=== PATIENT | male | born 1955 | race Caucasian/White ===

== ENCOUNTER 2023-01-03 07:53 | Observation (INO) ==
--- NOTE | 2022-12-12 15:28 | PAT Medication Instructions ---
Medication Instructions Date of Service December 12, 2022 Home Medications allopurinol 300 mg tablet 300 mg PO QAM hydrochlorothiazide 25 mg tablet 25 mg PO QAM lisinopril 10 mg tablet 10 mg PO QAM metoprolol tartrate 100 mg tablet 100 mg PO QAM DO NOT take the morning of surgery hydrochlorothiazide 25 mg tablet 25 mg PO QAM lisinopril 10 mg tablet 10 mg PO QAM Take morning of surgery With a small sip of water, OTHERWISE NOTHING TO EAT OR DRINK AFTER MIDNIGHT: allopurinol 300 mg tablet 300 mg PO QAM metoprolol tartrate 100 mg tablet 100 mg PO QAM Other Notes If you have any questions please call us at [phone] or [phone] or [phone] or [phone]
--- NOTE | 2022-12-15 11:23 | History & Physical Report ---
Date of Service December 15, 2022 date of surgery: 01/03/23 Procedure: Right Total Knee Arthroplasty Surgeon: Erik Schultz Assessment & Plan (1) Arthritis of right knee: Plan: Risk and benefits of the procedure discussed in detail, he would like to proceed with right total knee replacement. He does live alone and would recommend overnight stay at the hospital. He states his kids live nearby and will be staying with him after surgery. Will place on aspirin 81 mg twice a day for 1 month postop. Follow-up in the office 2 weeks after surgery sooner if he is having any issues otherwise has no other questions or concerns. Would recommend home health physical therapy at the time of discharge The risks and benefits have been discussed including, but not limited to, risk of infection, nerve injury, stiffness, loss of motion, failure to improve, etc. Reasonable outcomes and options of treatment were discussed. An explanation of appropriate alternatives to the procedure that may be advantageous were discussed and their risks and benefits, as well as the risks and benefits of not proceeding with treatment. I offered to answer any additional inquiries concerning the treatment involved. All the patient's questions were answered. The patient is agreeable, understanding of the treatment plan and alternatives, and wishes to proceed with the treatment plan. History of Present Illness Chief Complaint: Right knee pain Primary Care Provider: NO PCP Patient presents for preop evaluation prior to his right total knee replacement. He states that he been having pain in his knee for several years now which is gradually worsened and is now affecting his daily activities including walking standing and using stairs. He has complaints of pain, decreased range of motion and intermittent swelling. At this point time is failed conservative measures like proceed with a right total knee replacement Allergies Allergy/AdvReac Type Severity Reaction Status Date / Time No Known Allergies Allergy Verified 12/12/22 11:17 Home Medications Medication Instructions Recorded Confirmed Type allopurinol 300 mg tablet 300 mg PO QAM 12/12/22 12/12/22 History hydrochlorothiazide 25 mg tablet 25 mg PO QAM 12/12/22 12/12/22 History lisinopril 10 mg tablet 10 mg PO QAM 12/12/22 12/12/22 History metoprolol tartrate 100 mg tablet 100 mg PO QAM 12/12/22 12/12/22 History Past Med/Surg History Medical History Gout HTN (hypertension) Surgical History Hx of cholecystectomy Hx of colonoscopy Hx of hemorrhoidectomy Family History Other No family history of adverse response to anesthesia Social History Smoking Status: Never smoker Second Hand Exposure: No; Do You Dip or Chew Tobacco: Yes (ADVISED); Tobacco Cessation Education Requested by Patient: No Hx Alcohol Use: Yes Alcohol type: beer Hx Substance Use: No Preferred Language: Korean Communication Ability: Effective Ed Teacher Required: No Beliefs That Will Affect Care: None Current Living Situation: Alone Other Information That Helps Us Care for You: No Feels Safe at Home: Yes Safety Concerns: Feels Safe At This Time Assistive Devices: Glasses Review of Systems Review of Systems: All systems reviewed & are unremarkable except as noted in HPI & below Constitutional: no fever, no chills and no sweats Respiratory: no cough and no dyspnea Cardiovascular: no chest pain, no dyspnea and no orthopnea Gastrointestinal: no abdominal pain, no nausea and no vomiting Musculoskeletal: as per Subjective / HPI Physical Exam Physical Exam: ht: 5ft 7in WT: 84.37kg Constitutional: WD/WN, vitals as above no acute distress Respiratory: normal respiratory effort, lungs clear to auscultation no res piratory distress, no labored breathing and does not use accessory muscles Cardiovascular: RRR, no murmur, no edema Gastrointestinal (Abdomen): normal bowel sounds, soft, nontender, no hepatosplenomegaly Musculoskeletal: Knee: + knee abnormal to inspection (RIGHT KNEE: ), + effusion (+1 effusion), + limited ROM of knee (ROM 0/3/110), + knee ROM with crepitation, + joint line tenderness (medial joint line) and + Sonia's sign positive; no deformity, no skin erythema, no ecchymosis, no valgus laxity, no varus laxity, anterior drawer test negative, Roberto's sign negative and pivot shift test negative Results & Data Results & Data ([facility]) Diagnostic Findings Right Knee X-ray: Right knee series showing advanced degenerative changes to the right knee, narrowing of the medial compartment and patello-femoral joint with patellar spurring noted, findings showing joint space narrowing of the medial compartment and patello-femoral joint, osteophyte formation and subchondral sclerosis noted. overall varus alignment. no acute bony pathology noted.
--- NOTE | 2022-12-15 12:59 | Anesthesiology Consultation ---
Date of Service December 15, 2022 Assessment & Plan (1) Encounter for pre-operative examination: - COVID screening: Per assessment on 12/15: No known COVID-19 positive contacts or current COVID-19 related symptoms. Travel screen negative. Patient vaccinated. At surgeon discretion if preop Covid testing being done. - Outpatient joint assessment: Pt currently scheduled for inpatient pathway. If surgeon requests review for outpatient joint pathway, patient is an acceptable candidate for outpatient joint program from anesthesia standpoint pending surgeon's office assessment that patient is motivated, has good support and completes Same Day Joint Program preop requirements. Chart Review Chart Review: Acceptable Risk for Surgery and Patient seen in Pre Admission Testing Teaching & Discussion Pre-Anesthesia Teaching/Discussion Notes: Instructed NPO after midnight before surgery,except medications with 15 cc of water. Medication instructions provided according to the PAT guidelines. History Surgery Operation Date: 01/03/23 08:25 Proposed Procedures p Right Total Knee Arthroplasty - Erik Schultz DO Height/Weight Height: 5 ft 7 in Weight: 87 kg Allergies Allergy/AdvReac Type Severity Reaction Status Date / Time No Known Allergies Allergy Verified 12/12/22 11:17 Medications Home Medications Medication Instructions Recorded Confirmed Last Taken allopurinol 300 mg tablet 300 mg PO QAM 12/12/22 12/12/22 Unknown hydrochlorothiazide 25 mg tablet 25 mg PO QAM 12/12/22 12/12/22 Unknown lisinopril 10 mg tablet 10 mg PO QAM 12/12/22 12/12/22 Unknown metoprolol tartrate 100 mg tablet 100 mg PO QAM 12/12/22 12/12/22 Unknown Past Medical History Medical History Gout HTN (hypertension) Exercise / Class Metabolic Activity II 4-5 Yardwork/Stairs/Walk up hill Past Family History Family History Other No family history of adverse response to anesthesia Past Surgical History Surgical History Hx of cholecystectomy Hx of colonoscopy Hx of hemorrhoidectomy Past Anesthesia History No Family Hx of Anesthesia Complications and Other (Slow to wake with cholecystectomy) History of PONV No Hx of PONV and No Hx of Motion Sickness Social History Smoking Status: Never smoker tobacco type: smokeless tobacco Do You Dip or Chew Tobacco: Yes (Advised none DOS) Hx Alcohol Use: Yes Alcohol type: beer alcohol intake frequency: a few times a week Hx Substance Use: No substance use type: does not use Review of Systems Patient denies chest pain, shortness of breath, dyspnea on exertion, fever, chills, cough, wheezing, palpitations. Physical Exam Vital Signs VITALS BP 155/88 P 54 TEMP 97.6 SP02 95%RA RESP 16 PHYSICAL Full cervical extension range of motion. Full TMJ range of motion. TMD 2.5 finger breaths Mallampati Score 2 Dentition: several chipped including upper front/sides Lungs: clear throughout to auscultation Cardiac: regular rate and rhythm, no murmurs noted Spine: normal Carotid arteries: negative bruit Extremities: no edema Lab Results Anesthesia Preop Results Results Anesthesia Widget: WBC 6.74 K/ul (4.8-10.8) 12/15/22 Hgb 16.8 g/dl (14.0-18.0) 12/15/22 Hct 48.8 % (42.0-52.0) 12/15/22 Plt 164 K/uL (130-400) 12/15/22 Na 140 mmol/L (136-145) 12/15/22 K 3.7 mmol/L (3.5-5.1) 12/15/22 Cl 100 mmol/L (98-107) 12/15/22 CO2 34 mmol/L (21-32) H 12/15/22 BUN 14 mg/dl (6-23) 12/15/22 Creat 1.12 mg/dl (0.6-1.4) 12/15/22 Glucose Level 91 mg/dl (70-99(Fasting)) 12/15/22 PT 10.8 Seconds (9.0-12.0) 12/15/22 PTT 26.9 Seconds (21.0-31.0) 12/15/22 INR 1.0 (0.9-1.1) 12/15/22 HA1c 5.6 % (4.5-5.6) 12/15/22 Urine Color Yellow 12/15/22 Urine Appearance Clear (Clear) 12/15/22 Urine pH 5.5 (4.5-7.5) 12/15/22 Urine Specific [place] 1.013 (1.000-1.030) 12/15/22 Urine Protein Negative (Negative) 12/15/22 Urine Glucose (UA) Negative (Negative) 12/15/22 Urine Ketones Negative (Negative) 12/15/22 Urine Blood Negative (Negative) 12/15/22 Urine Nitrite Negative (Negative) 12/15/22 Urine Bilirubin Negative (Negative) 12/15/22 Urine Urobilinogen Negative (Negative) 12/15/22 Urine Leukocyte Esterase Negative (Negative) 12/15/22 Blood Type O Positive 12/15/22 Antibody Screen NEGATIVE 12/15/22 Testing Electrocardiogram Date: 12/15/22 Findings: + SB @ (57) Chest X-Ray Date: 12/15/22 FINDINGS: The lungs are clear. Cardiac silhouette is normal in size. No pleural effusions. No pneumothorax. Prior cholecystectomy. IMPRESSION: No acute process. COVID-19 Risk Screen Screening Information COVID-19 Screen Date: 12/15/22 Exposure 21 Days Family/Household +COVID Last 21 Days: No Exposure 10 Days Any COVID Exposure Last 10 Days: No Symptoms Last 10 Days Experienced COVID Sx Last 10 Days: No + COVID 0-90 Days COVID + in Last 0-90 Days: No
[~2023-01-03 07:53] MED LIST: ACETAMINOPHEN 500 MG TAB PO SCH; CeleBREX 200 MG CAP PO SCH; FAMOTIDINE 20 MG TAB PO SCH; GABAPENTIN 300 MG CAP PO SCH; LR 500ML BOLUS, THEN 15ML/HR IV SCH; METOCLOPRAMIDE HCL 10 MG TABLET PO SCH; ROPIVACAINE 0.5% 5 MG/ML 30 ML VIAL ONE; ROPIVACAINE 0.5% HCL/PF 150 MG, BUPIVACAINE 0.75% MPF 20 ML, EPINEPHrine 30MG/30ML (OR ... INSTIL SCH; TRANEXAMIC ACID 1,000 MG **IV Intra-op IV SCH; TRANEXAMIC ACID 1,000 MG **IV Pre-op IV SCH; ceFAZolin 2000MG 2,000 MG/15 ML SYR IV SCH; dexAMETHasone 4 MG TAB PO SCH
[2023-01-03] MEDS ORDERED: MIDAZOLAM HCL 1 MG/ML 2ML VIAL ONE (09:26)
[2023-01-03] MEDS ORDERED: fentaNYL citrate 100 MCG/2 ML VIAL ONE (09:26)
[2023-01-03] MEDS ORDERED: PROPOFOL IV EMULSION 10 MG/ML 20 ML VIAL IV ONE (09:26)
[2023-01-03] MEDS ORDERED: LIDOCAINE 2% MPF LOCAL 5 ML VIAL INFIL ONE (09:26)
--- NOTE | 2023-01-03 10:01 | History & Physical Bridge Note ---
Date of Service January 03, 2023 History & Physical Bridge Note I have examined the patient, reviewed the History & Physical and in the interval since the performance of the History & Physical I have noted the following changes of clinical significance: no changes noted
[2023-01-03] MEDS ORDERED: ORTHO JOINT ANESTHETIC ONE (10:39)
[2023-01-03] MEDS ORDERED: ONDANSETRON INJ 2 MG/ML 2 ML VIAL IV PRN ×2 (11:05→14:39)
[2023-01-03] MEDS ORDERED: ePHEDrine sulfate 50 MG/ML AMP IV PRN (11:05)
[2023-01-03] MEDS ORDERED: fentaNYL citrate 100 MCG/2 ML VIAL IV PRN (11:05)
[2023-01-03] MEDS ORDERED: ATROPINE SULFATE 0.1 MG/ML 10ML SYR IV PRN (11:05)
[2023-01-03] MEDS ORDERED: KETOROLAC 30 MG/ML VIAL IV PRN (11:05)
[2023-01-03] MEDS ORDERED: PHENYLEPHRINE HCL 10 MG/ML VIAL ONE (11:46)
[2023-01-03] MEDS ORDERED: GLYCOPYRROLATE 0.2 MG/ML VIAL ONE (11:46)
--- NOTE | 2023-01-03 12:33 | Operative Report ---
Post Operative Report Pre & Post Diagnosis Operation Date: 01/03/23 10:45 Pre-Op Diagnosis: Right knee osteoarthritis. Post-Op Diagnosis: Right knee osteoarthritis. I identified the patient and participated in the time-out.: Yes Procedure Operation Date: 01/03/23 10:45 Actual Procedures p Right total knee arthroplasty(Right) utilizing [employer] carmine patient matched size 9 femur narrow tibia F poly 13 patella 35- Erik Schultz DO Surgeon Erik Schultz DO Building Supervisor CARLIE Watkins Estimated Blood Loss 5 Findings Consistent with Post-Op Diagnosis Patient presents with severe end-stage DJD 7 degree flexion contracture varus alignment eburnated [id number] marginal osteophyte subchondral sclerosis with a large effusion Specimens Bone and cartilage Drains Medium bore Hemovac Anesthesia Type MAC Spinal Regional Complications none Disposition Accompanied Patient To Recovery: No Disposition: Recovery Room Indications Patient patient presents with severe end-stage DJD failed attempted conservative management clinic physical therapy anti-inflammatories relative rest activity modification corticosteroid injection the above intraoperative findings were noted Description of Procedure After proper prepping and draping of the Right lower extremity anterior midline incision was made over the region of the extensor extensor mechanism after meticulous hemostasis was obtained and maintained in subcutaneous tissues a medial parapatellar incision was made The patella was subluxed lateralward the medial lateral gutter were cleaned from any hypertrophic synovitis and scar tissue of the distal femoral block was placed and the distal femoral osteotomy cut was made subsequently the chamfers anterior and posterior osteotomy cuts were made utilizing the 4-in-1 block the tibia was subsequently subluxed anteriorward medial and ateral meniscal remnants were excised in their entirety remnants of the anterior and posterior cruciate ligaments were excised in their entirety excellent exposure of the proximal tibia was obtained the tibial osteotomy guide was placed on the proximal tibial osteotomy cut was made once again the knee was irrigated with copious amounts of sterile saline solution the patella was subsequently everted lateralward thickened scar tissue around the patella was removed the patella was subsequently cut utilizing a freehand technique and was drilled prepared for final preparation and placement of patella socially flexion-extension gaps were checked and the equal and symmetric trials were placed to the appropriate femoral and tibial trials with poly-spacer being placed for equal flexion and extension gaps and full range of motion including extension to 0 and flexion to 140 the trial components after having been taken to recovery range of motion was subsequently removed meticulous hemostasis was obtained and maintained subsequently a knee block injection of joint cocktail including ropivacaine 0.5% 150 mg. Bupivacaine 0.5% epinephrine 1-200,030 mL's toradol 30 mg dexamethasone 4 mg ketamine 10 mg clonidine 100 micrograms normal saline solution 30 mg was infiltrated into the soft tissues of the posterior knee medial lateral gutters and periosteal synovium special attention was paid to protect neurovascular structures at all times subsequently trial components having been removed the knee was irrigated with sterile saline solution. debris was removed the proximal tibia was subsequently prepared and was made ready for the placement of the tibial component tibial component was also cemented and tamped into position the femoral component was subsequently placed and cemented in the position the patellar component was subsequently cemented in position because hemostasis once again obtained and maintained wound having been thoroughly irrigated with debridement and debridement lavage was performed as well as a medial parapatellar incision closed with #1 Vicryl in interrupted fashion subcutaneous was closed with #2 Vicryl skin was closed with skin clips. PA-C was necessary for prepping and drapping as well as wound closure of deep fascia Sub cutaneous tissue and skin and was necessary for the case. A sterile compressive dressing was placed patient was taken to recovery in stable condition of report dictated by Antoine I attest to the content of the Intraoperative Record and any orders documented therein. Any exceptions are noted below.Due to the complex nature of the procedure, the entire surgery was performed with the operational assistance of CARLIE Watkins. The career services assistant, under direct supervision, was involved in the actual performance of all aspects of the surgical procedure including hemostasis, tissue retraction and incision, instrument management, patient positioning, and wound closure. I attest to the content of the Intraoperative Record and any orders documented therein. Any exceptions are noted below.
--- NOTE | 2023-01-03 13:35 | XRay Report ---
XR knee RT 1 or 2V routine CLINICAL HISTORY: Surgical Post Op TECHNIQUE: 2 views of the right knee were obtained. Comparison: None available at the time of this dictation. FINDINGS: Patient is status post total knee arthroplasty with expected postsurgical changes including soft tiss ue swelling and subcutaneous emphysema. No periarticular lucency or hardware fracture is seen. IMPRESSION: No evidence of acute osseous injury. ACT 112: Negative or not required by law. Electronically signed by: Manny Neri M.D. 01/03/2023 1:34 PM
--- NOTE | 2023-01-03 14:16 | Anesthesiology Progress Note ---
Date of Service January 03, 2023 Anesthesia Post Procedure Vital Signs Vital Signs: Temp Pulse Pulse Resp BP Pulse Ox O2 Del Method 01/03/23 14:05 36.0 C L 48 L 17 113/77 93 Room Air 01/03/23 13:55 68 16 124/75 95 Room Air 01/03/23 13:45 64 14 110/72 94 Room Air 01/03/23 13:35 63 26 H 115/77 94 Room Air 01/03/23 13:25 74 22 107/80 97 Room Air 01/03/23 13:15 56 L 19 102/68 96 Oxymask 01/03/23 13:06 36.2 C L 58 L 14 97/62 L 98 Oxymask 01/03/23 08:52 Room Air 01/03/23 08:42 36.6 C 59 L 20 138/87 98 Room Air O2 Flow Rate 01/03/23 14:05 01/03/23 13:55 01/03/23 13:45 01/03/23 13:35 01/03/23 13:25 01/03/23 13:15 5 01/03/23 13:06 5 01/03/23 08:52 01/03/23 08:42 Transfer of Care Handoff Completed per policy Notes Mental Status: alert / awake / arousable Patient Amnestic to Procedure: Yes Nausea / Vomiting: adequately controlled Pain: adequately controlled Airway Patency, RR, SpO2: stable & adequate BP & HR: stable & adequate Hydration State: stable & adequate Neuraxial Anesthesia: was administered and sensory block is resolving Anesthetic Complications: no major complications apparent
[2023-01-03] MEDS ORDERED: METOCLOPRAMIDE HCL INJ 5 MG/ML 2 ML VIAL IV PRN (14:39)
[2023-01-03] MEDS ORDERED: MAGNESIUM HYDROXIDE SUSP 30 ML UDC PO PRN (14:39)
[2023-01-03] MEDS ORDERED: diphenhydrAMINE Capsule 25 MG CAP PO PRN (14:39)
[2023-01-03] MEDS ORDERED: NALOXONE HCL 0.4 MG/1 ML VIAL/CARP IV PRN (14:39)
[2023-01-03] MEDS ORDERED: bisacodyL 10 MG SUPP PR PRN (14:39)
[2023-01-03] MEDS ORDERED: HYDROmorphone INJ 1 MG/ML SYRINGE IV PRN (14:39)
[2023-01-03] MEDS ORDERED: oxyCODONE HCL IR 5 MG TAB (IMMEDIATE RELEASE) PO PRN (14:39)
[2023-01-03] MEDS: SODIUM CHLORIDE 0.9% 1000ML 1,000 ML IV SCH (15:12)
[2023-01-03] MEDS: ACETAMINOPHEN 500 MG TAB PO SCH ×2 (15:12→21:48)
[2023-01-03] MEDS: KETOROLAC TROMETHAMINE 15 MG/ML VIAL IV SCH ×2 (15:12→21:49)
[2023-01-03] MEDS: ceFAZolin 2000MG 2,000 MG/15 ML SYR IV SCH (18:22)
[2023-01-03] MEDS ORDERED: CeleBREX 200 MG CAP PO SCH (21:00)
[2023-01-03] MEDS ORDERED: SENNA 8.6 MG TAB PO SCH (21:00)
[2023-01-03] MEDS: ASPIRIN 81 MG ECTAB PO SCH (21:47)
[2023-01-03] MEDS: DOCUSATE SODIUM 100 MG CAP PO SCH (21:47)
[2023-01-04] MEDS: SODIUM CHLORIDE 0.9% 1000ML 1,000 ML IV SCH (00:53)
[2023-01-04] MEDS: ceFAZolin 2000MG 2,000 MG/15 ML SYR IV SCH (02:58)
[2023-01-04] MEDS: KETOROLAC TROMETHAMINE 15 MG/ML VIAL IV SCH ×2 (02:58→08:42)
[2023-01-04] MEDS: ACETAMINOPHEN 500 MG TAB PO SCH (06:19)
--- NOTE | 2023-01-04 06:44 | Orthopedic Progress Note ---
Date of Service January 04, 2023 Assessment & Plan (1) History of total right knee replacement: Plan: POD #1 s/p Right TKA pt/ot dvt proph with AARTI/SCD/ASA plan for d/c home with HHPT, d/c after PT today Admission and Anticipated Discharge Date Admission Date: January 03, 2023 Subjective POD #1 s/p Right TKA Review of Systems Constitutional: no fever, no chills and no sweats Respiratory: no cough and no dyspnea Cardiovascular: no chest pain and no dyspnea Gastrointestinal: no abdominal pain, no nausea and no vomiting Physical Exam Physical Exam: Vital Signs Temp 36.5 C 01/04/23 02:59 Pulse 70 01/04/23 02:59 Resp 20 01/04/23 02:59 BP 126/74 01/04/23 02:59 Pulse Ox 95 01/04/23 02:59 O2 Del Method Room Air 01/04/23 02:59 O2 Flow Rate 5 01/03/23 13:15 Intake & Output 01/03/23 01/03/23 01/04/23 06:59 18:59 06:59 Intake Total 1800 / 3311.666 1511.666 / 3311.66 6 Output Total 140 / 550 410 / 550 Balance 1660 / 2761.666 1101.666 / 2761.66 6 Weight 85.2 kg Intake: IV 200 / 6467.845 6013.666 / 1711.66 6 Lactated Ringe r's 1,000 ml @ 15 0 / 0 mls/hr IV .Q24 H MARTHA Rx#: [id number] Sodium Chlorid e 0.9% 1000ML 1, 1511.666 / 1511.66 6 000 ml @ 100 m ls/hr IV .Q10H MARTHA Rx#:[id number] Tranexamic Aci d / 0.7% NaCl 1, 200 / 200 000 mg In 100 ml @ 600 mls/hr IV TODAY@0600 MARTHA Rx#:[id number] IV Perioperative 1600 / 1600 Output: Urine 350 / 350 Estimated Blood Loss 5 / 5 Drain Output 135 / 195 60 / 195 Right Knee Hem ovac 135 / 195 60 / 195 Other: Weight Measureme nt Method Standing Scale Musculoskeletal: Right Leg: NVDI, calf SNT, negative vikas sign. DP palpable, able to wiggle toes/ankle movement without difficulty. dressing clean dry and intact. Results & Data ([facility]) Vital Signs (Past 12 Hours) Vital Signs Temp Pulse Resp BP Pulse Ox O2 Del Method 01/04/23 02:59 36.5 C 70 20 126/74 95 Room Air 01/03/23 23:16 36.5 C 86 15 131/78 95 Room Air 01/03/23 19:24 36.5 C 81 16 138/82 94 Room Air Laboratory Results Laboratory Results SARS-CoV-2, RNA, NAAT NEGATIVE (NEGATIVE) 01/03/23 Unknown Impressions Knee X-Ray 01/03/23 13:16 XR knee RT 1 or 2V routine CLINICAL HISTORY: Surgical Post Op TECHNIQUE: 2 views of the right knee were obtained. Comparison: None available at the time of this dictation. FINDINGS: Patient is status post total knee arthroplasty with expected postsurgical changes including soft tissue swelling and subcutaneous emphysema. No periarticular lucency or hardware fracture is seen. IMPRESSION: No evidence of acute osseous injury. ACT 112: Negative or not required by law. Electronically signed by: Manny Neri M.D. 01/03/2023 1:34 PM
--- NOTE | 2023-01-04 07:36 | Discharge Summary ---
Date of Service date of discharge: January 04, 2023 date of admission: 01/03/23 Admission HPI Per Admitting Provider Patient presents for preop evaluation prior to his right total knee replacement. He states that he been having pain in his knee for several years now which is gradually worsened and is now affecting his daily activities including walking standing and using stairs. He has complaints of pain, decreased range of motion and intermittent swelling. At this point time is failed conservative measures like proceed with a right total knee replacement Principal Diagnosis right knee replacement Discharge Exam Vital Signs Temp 36.4 C L 01/04/23 07:15 Pulse 71 01/04/23 07:15 Resp 16 01/04/23 07:15 BP 147/80 H 01/04/23 07:15 Pulse Ox 95 01/04/23 07:15 O2 Del Method Room Air 01/04/23 07:15 O2 Flow Rate 5 01/03/23 13:15 Intake & Output 01/03/23 01/04/23 01/04/23 18:59 06:59 18:59 Intake Total 1800 / 3311.666 1511.666 / 3311.666 Output Total 140 / 550 410 / 550 Balance 1660 / 2761.666 1101.666 / 2761.666 Weight 85.2 kg Intake: IV 200 / 1892.550 2876.666 / 1711.666 Lactated Ringer's 1,000 ml @ 15 0 / 0 mls/hr IV .Q24H MARTHA Rx#: [id number] Sodium Chloride 0.9% 1000ML 1, 1511.666 / 1511.666 000 ml @ 100 mls/hr IV .Q10H MARTHA Rx#:[id number] Tranexamic Acid / 0.7% NaCl 1, 200 / 200 000 mg In 100 ml @ 600 mls/hr IV TODAY@0600 MARTHA Rx#:[id number] IV Perioperative 1600 / 1600 Output: Urine 350 / 350 Estimated Blood Loss 5 / 5 Drain Output 135 / 195 60 / 195 Right Knee Hemovac 135 / 195 60 / 195 Other: Weight Measurement Method Standing Scale Musculoskeletal right knee: NVDI, calf SNT, negative vikas sign. DP palpable, able to wiggle toes/ankle movement without difficulty. dressing clean dry and intact. Discharge Data Allergies Allergy/AdvReac Type Severity Reaction Status Date / Time No Known Allergies Allergy Verified 01/03/23 08:38 Procedures Performed Operation Date: 01/03/23 10:45 Actual Procedures p Right total knee arthroplasty(Right) - Erik Schultz DO Ordered Studies 01/03/23 05:00 US - OR guided needle placemen Routine Hospital Course (1) History of total right knee replacement: POD #1 s/p Right TKA pt/ot dvt proph with AARTI/SCD/ASA plan for d/c home with HHPT, d/c after PT today Total Time Total Time Spent Total Time Spent (In Minutes): 20 Discharge Plan Discharge Items Patient Disposition: Home - Home Health Services Reason For Visit: POST OP TKA Discharge Diagnosis: right total knee replacement Activity: Per Instructions section Weightbearing Comment: WBAT with walker Non-emergency contact: Surgeon Call non-emergency contact if: you have any medication questions, your temperature is above 101, your wound has increased redness, your wound has increased drainage and your wound pain has increased Follow-up/Referrals: PCP,NO [Primary Care Provider] - Diet: Regular Addtl Attending Provider Instructions: ACTIVITY RECOMMENDATIONS: SELF CARE INSTRUCTIONS AFTER TOTAL KNEE REPLACEMENT A. You may need to continue a physical therapy program after discharge from the hospital. There are several options available to you. Your doctor will assist you in selecting the best one for you. 1. An out-patient facility 2 to 3 times a week for therapy or home therapy. 2. Continue working on all exercises taught to you in the hospital. Your goals should be to increase bending of your knee to 90 degrees and beyond and to fully straighten your knee. B. You may progress at your own pace from walking with a walker or crutches to a cane; then to no assistive devices. C. Make walking a part of your daily routine. Be up as much as comfortable with rest periods throughout the day. Rest with leg elevation is very important. Use the ice wrap frequently for the first 3-4 weeks. D. There are no restrictions on activities. You may ride in a car, shop, participate in catia designer and all social activities. E. Wear the long elastic stockings (AARTI hose) 20 hours a day for 2 weeks after surgery. They can be removed several times a day for laundering and for a bath. F. You may shower, no tub baths until cleared by your doctor. SPECIAL CARE INSTRUCTIONS: VERY IMPORTANT TO READ AND REVIEW A. There are a few signs you need to watch for after you are home. Call [facility] if you notice any of the followin. Increased severe knee pain. Some pain is expected especially when you exercise. 2. Increased swelling in your leg or knee; pain or swelling of the calf muscle in either lower leg. 3. Any fluid drainage from the incision. 4. Shortness of breath or chest pain. B. Please call [facility] at if you have any concerns or questions about your operation or recovery. The doctor or his nurse will return your call promptly. C. You must take antibiotics before dental work, bladder, bowel or other surgery. Your doctor will provide you with a permanent care to carry describing this precaution. IMPORTANT: * REMEMBER TO TAKE ASPIRIN, 81 MG, TWICE DAILY FOR 4 WEEKS UNLESS OTHERWISE DIRECTED. THIS IS YOUR BLOOD THINNER. * HIGH RISK PATIENTS MAY BE PRESCRIBED A STRONGER BLOOD THINNER. THIS WILL BE PROVIDED AT DISCHARGE. * CALL IF INCREASED PAIN, REDNESS, DRAINAGE OR FEVER GREATER THAT 101. * WEAR AARTI HOSE 20 HOURS PER DAY FOR 2 WEEKS. DRESSING INSTRUCTIONS * MEGAN Dressing- This is a large suction dressing covering your incision. This will help pull any excess drainage from the wound and allow your incision to heal properly. You may shower with this if you can keep the unit outside of the shower. If any bleeding or leakage is noted please call your doctor's office. This will remain on your incision for 7 days and then should be removed. This can be done yourself or by the home nursing staff if applicable. The entire unit is disposable once removed. Once removed, keep incision clean and dry. If redness or drainage is noted, please call your surgeon. ONCE MEGAN IS REMOVED, FOLLOW THESE INSTRUCTIONS: DERMABOND Prineo- This is a mesh tape dressing that is covered with glue. It should remain in place until the incision is properly healed, usually 10-14 days. This dressing is designed to naturally slough off. You may trim the excess mesh tape as it peels off. Incision may be briefly wet in a shower. Dry immediately by blotting with a clean, dry towel. Do not bath or swim until instructed by your doctor. Do not scratch, rub, or pick at the dressing. Do not apply any topical ointments or lotions until dressing is completely removed and/or instructed by your doctor. There may be a small piece of suture material at one end of your incision. Do not pull or trim this. If it is bothersome or catching on clothing, you may cover it with a band-aid. IF INCISION IS LEAKING THROUGH DRESSING, CALL THE OFFICE . FOLLOW UP VISIT: If appointment is not already scheduled: Please call [facility] to make a follow-up appointment for 2 weeks after your surgery at . Pending Studies at Discharge: No Stand-Alone Forms: My [facility] Medications and DC Order Prescriptions: New acetaminophen [Tylenol Extra Strength] 500 mg Tablet 1,000 mg PO Q8 21 Days Qty: 126 0RF aspirin 81 mg Tablet,Delayed Release (Dr/Ec) 81 mg PO BID 30 Days Qty: 60 0RF celecoxib [Celebrex] 200 mg Capsule 200 mg PO BID 30 Days Qty: 60 0RF oxycodone 5 mg Tablet 5 - 10 mg PO Q6H PRN (Reason: pain) Qty: 30 0RF Rx Instructions: ongoing therapy, supervising Dr Alcon Schultz. Max 6 tabs in 24 hours cefadroxil 500 mg capsule 500 mg PO BID 14 Days Qty: 28 0RF Continued metoprolol tartrate 100 mg Tablet 100 mg PO QAM lisinopril 10 mg Tablet 10 mg PO QAM allopurinol 300 mg Tablet 300 mg PO QAM hydrochlorothiazide 25 mg Tablet 25 mg PO QAM Admission Data Admit Date/Time: 01/03/23 13:16 Attending Provider: Erik Schultz Admit Provider: Erik Schultz Primary Care Provider: PCP,MOOSE
[2023-01-04 07:43] LABS: Hematocrit (blood only) 37.6 % (42.0-52.0); Hemoglobin 13.4 g/dl (14.0-18.0); Mean Corpuscular Hemoglobin 29.8 pg (25.0-34.0); Mean Corpuscular Hgb Conc 35.6 g/dL (32.0-36.0); Mean Corpuscular Volume 83.6 fL (80.0-100.0); Platelet Count 157 K/uL (130-400); RDW Coefficient of Variation 13.2 % (11.5-14.5); RDW Standard Deviation 40.6 fL (36.4-46.3); White Blood Count 14.89 K/ul (4.8-10.8)
[2023-01-04 07:48] LABS: BUN Creatinine Ratio 17.2 (10-20); Calcium 8.2 mg/dl (8.5-10.1); Creatinine Clr Calc Pharmacy 46.5 ml/min; Est GFR (African American) 50.1 ml/min; Est GFR (Non-African American) 43.3 ml/min; Potassium 3.6 mmol/L (3.5-5.1)
[2023-01-04] MEDS: ASPIRIN 81 MG ECTAB PO SCH (08:41)
[2023-01-04] MEDS: DOCUSATE SODIUM 100 MG CAP PO SCH (08:41)
[2023-01-04] MEDS ORDERED: allopurinoL 300 MG TAB PO SCH (09:00)
[2023-01-04] MEDS ORDERED: hydroCHLOROthiazide 25 MG TAB PO SCH (09:00)
[2023-01-04] MEDS ORDERED: lisinopril 10 MG TAB PO SCH (09:00)
[2023-01-04] MEDS ORDERED: METOPROLOL SUCC 50MG EXT REL TAB PO SCH (09:00)
[2023-01-04] MEDS ORDERED: MULTIVITAMIN TAB PO SCH (09:00)
== END 2023-01-04 11:23 | disposition home health service (06) ==
LOC: ASU 07:53 → 3E 07:53
DX: Z79.899 Other long term (current) drug therapy; M17.11 Unilateral primary osteoarthritis, right knee; Z20.822 Contact with and (suspected) exposure to COVID-19